=== PATIENT | female | born 1985 | race African-American/Black ===

== ENCOUNTER 2018-05-23 15:48 | Emergency (ER) | END 2018-05-23 17:32 | disposition home or self-care (01) ==

== ENCOUNTER 2018-10-21 04:40 | Inpatient (IN) | END 2018-10-24 17:41 | disposition home or self-care (01) | DRG 788 ==

== ENCOUNTER 2019-03-15 07:13 | Emergency (ER) | payer MEDICAID ==
[~2019-03-15] VITALS: Ht 170.2 cm; Wt 87.8 kg
[2019-03-15 07:17] VITALS: BP 120/57; PULSE 60; RESP 20; Ht 170.2 cm; Wt 87.8 kg
--- NOTE | 2019-03-15 09:38 | ERD ---
ER Documentation Chief Complaint Chief Complaint Complains of abdominal pain hx of gall bladder problems (Stents placed) HPI 34-year-old female is here with right upper quadrant abdominal pain. She has a history of gallbladder stones and has a stent placed that was placed here in November secondary to choledocholithiasis. She has no nausea or vomiting. No fever. No dysuria hematuria or frequency. Patient would like to have the stent removed. ROS All systems reviewed and are negative except as per history of present illness. Medications Home Meds No Active Prescriptions or Reported Meds Allergies Allergies: Coded Allergies: No Known Allergy (Unverified , 10/21/18) PMhx/Soc History of Surgery: Yes (c section, gall stone stent) Anesthesia Reaction: No Hx Neurological Disorder: No Hx Respiratory Disorders: No Hx Cardiac Disorders: No Hx Psychiatric Problems: No Hx Miscellaneous Medical Probl: No Hx Alcohol Use: No Hx Substance Use: No Hx Tobacco Use: No Smoking Status: Never smoker FmHx Family History: No diabetes Physical Exam Vitals Vital Signs Date Temp Pulse Resp B/P (MAP) Pulse Ox O2 O2 Flow FiO2 Time Delivery Rate 03/15/19 97.5 60 20 120/57 100 07:17 (78) Physical Exam INITIAL VITAL SIGNS: Reviewed by me GENERAL: Awake, alert and oriented x 4, well appearing, nontoxic, speaking in full sentences. No acute distress HEAD: Atraumatic NECK: Supple. No masses. Full range of motion. No meningismus. No midline tenderness. EYES: EOMI. PERRL. ory muscle use. CV: Regular rate and rhythm. No murmurs, rubs, or gallops. ABDOMEN: Soft, non-distended. Nontender. Negative [place]. Negative [place] point tenderness. No CVA tenderness bilaterally. No guarding. No rebound. Result Diagram: 03/15/19 0758 03/15/19 0758 Results 24 hrs Laboratory Tests Test 03/15/19 07:57 03/15/19 07:58 POC Beta HCG, Qualitative NEGATIVE White Blood Count 6.8 10^3/ul Red Blood Count 4.24 10^6/ul Hemoglobin 13.0 g/dl Hematocrit 39.9 % Mean Corpuscular Volume 94.1 fl Mean Corpuscular Hemoglobin 30.7 pg Mean Corpuscular Hemoglobin Concent 32.6 g/dl Red Cell Distribution Width 13.3 % Platelet Count 274 10^3/UL Mean Platelet Volume 10.3 fl Immature Granulocytes % 0.300 % Neutrophils % 56.7 % Lymphocytes % 32.7 % Monocytes % 8.4 % Eosinophils % 1.5 % Basophils % 0.4 % Nucleated Red Blood Cells % 0.0 /100WBC Immature Granulocytes # 0.020 10^3/ul Neutrophils # 3.8 10^3/ul Lymphocytes # 2.2 10^3/ul Monocytes # 0.6 10^3/ul Eosinophils # 0.1 10^3/ul Basophils # 0.0 10^3/ul Nucleated Red Blood Cells # 0.0 10^3/ul Urine Color YELLOW Urine Clarity SLIGHTLY CLOUDY Urine pH 6.0 Urine Specific [place] 1.032 Urine Ketones TRACE mg/dL Urine Nitrite NEGATIVE mg/dL Urine Bilirubin NEGATIVE mg/dL Urine Urobilinogen NEGATIVE mg/dL Urine Leukocyte Esterase NEGATIVE [place]/ul Urine Microscopic RBC 72 /HPF Urine Microscopic WBC 4 /HPF Urine Squamous Epithelial Cells FEW /HPF Urine Bacteria FEW /HPF Urine Mucus MODERATE /HPF Urine Yeast (Budding) FEW /HPF Urine Hemoglobin 1+ mg/dL Urine Glucose NEGATIVE mg/dL Urine Total Protein 1+ mg/dl Sodium Level 141 mmol/L Potassium Level 4.2 mmol/L Chloride Level 104 mmol/L Carbon Dioxide Level 28 mmol/L Anion Gap 9 Blood Urea Nitrogen 16 mg/dl Creatinine 0.63 mg/dl Est Glomerular Filtrat Rate mL/min > 60 mL/min Glucose Level 102 mg/dl Calcium Level 9.6 mg/dl Total Bilirubin 0.6 mg/dl Direct Bilirubin 0.00 mg/dl Indirect Bilirubin 0.6 mg/dl Aspartate Amino Transf (AST/SGOT) 19 IU/L Alanine Aminotransferase (ALT/SGPT) 25 IU/L Alkaline Phosphatase 84 IU/L Total Protein 8.1 g/dl Albumin 4.7 g/dl Globulin 3.40 g/dl Albumin/Globulin Ratio 1.38 Lipase 120 U/L Procedures/MDM The differential diagnosis includes but is not limited to appendicitis, cholelithiasis, cholecystitis, pancreatitis, hepatitis, gastritis, peptic ulcer disease, bowel obstruction, diverticulitis, renal disease including stones, torsion, AAA, pyelonephritis, and others. Laboratory analysis shows no evidence of acute emergent abnormality. No evidence of significant leukocytosis suggesting systemic infection or severe anemia. No evidence of acute renal or liver failure, no evidence of severe alkalosis or acidosis. Ultrasound shows CBD measures 6.5 mm [address] in place. No evidence of gallstones. Reviewed case with Dr. Asif and we agree patient is suitable for outpatient management. Patient was given phone number of who placed the stent so she can call and make an appointment to discuss removal of stent. Patient counseled regarding my diagnostic impression and care plan. Prior to discharge all questions answered. Pt agrees with treatment plan and understands strict return precautions. Pt is instructed to follow up with primary care provider within 24-48 hours. Precautionary instructions provided including instructions to return to the ER if not improving or for any worsening or changing symptoms or concerns. Departure Diagnosis: Primary Impression: Abdominal pain Condition: Stable Patient Instructions: Abdominal Pain Referrals: RODRIGO MARIE MD Additional Instructions: Call your primary care doctor TOMORROW for an appointment during the next 1-2 days.See the doctor sooner or return here if your condition worsens before your appointment time. RADHA SANDHU PA-C March 15, 2019 09:38
== END 2019-03-15 09:50 | disposition home or self-care (01) ==
LOC: FTE 07:13
DX: R10.11 Right upper quadrant pain (principal)
CPT/HCPCS: 36415; 76705; 80053; 81001; 81025; 83690; 85025; Z7502